=== PATIENT | male | born 1975 | race Caucasian/White ===

== ENCOUNTER → 2021-11-20 | Outpatient (CLI) | payer OTHER | LOC: LAB 18:38 | DX: R31.9 Hematuria, unspecified (principal) | CPT/HCPCS: 81001; 87086 ==

== ENCOUNTER → 2021-11-20 | Outpatient (CLI) | payer OTHER ==
[2021-11-20 19:13] LABS: HEMOGLOBIN 14.6 gm/dl (14.0-17.5); RED BLOOD COUNT 4.87 M/UL (4.20-5.50); WHITE BLOOD COUNT 8.2 K/UL (4.5-11.0)
[2021-11-20 19:32] LABS: BUN/CREATININE RATIO 13 (0-10)
== END ==
LOC: CT 18:34
PROVIDERS: Registered Nurse
DX: R31.9 Hematuria, unspecified (principal)
CPT/HCPCS: 80053; 85025; 85027

== ENCOUNTER → 2021-11-30 | Outpatient (CLI) | payer OTHER | LOC: CT 13:44 | DX: R31.0 Gross hematuria (principal); M19.90 Unspecified osteoarthritis, unspecified site; N47.5 Adhesions of prepuce and glans penis; F17.220 Nicotine dependence, chewing tobacco, uncomplicated; K76.0 Fatty (change of) liver, not elsewhere classified; K59.00 Constipation, unspecified | CPT/HCPCS: Q9967 ==